=== PATIENT | male | born 1935 | race Caucasian/White ===

== ENCOUNTER 2025-10-21 11:21 | Inpatient (IN) | payer MEDICARE ==
[2025-10-21 11:57] LABS: #Basophils 0.03 10x3/uL (0.0-0.2); #Eosinophils 0.06 10x3/uL (0.0-0.7); #Monocytes 1.15 10x3/uL (0.11-0.59); #Neutrophils 11.46 10x3/uL (1.40-6.50); %Basophils 0.2 % (0.0-1.0); %Eosinophils 0.4 % (0.0-10.0); %Lymphocytes 14.1 % (21.0-51.0); %Monocytes 7.7 % (0.0-10.0); %Neutrophils 77.1 % (42.0-75.0); Hematocrit 51.8 % (42.0-52.0); Hemoglobin 17.4 g/dL (14.0-18.0); Mean Corpuscular Hemoglobin 31.1 pg (27.0-31.0); Mean Corpuscular Volume 92.7 fL (78.0-98.0); Platelet Count 247 10x3/uL (130-400); Red Blood Cell (RBC) Count 5.59 mill/uL (4.70-6.10); White Blood Cell (WBC) Count 14.86 10x3/uL (4.8-10.8)
[2025-10-21 12:10] LABS: ALT (SGPT) 38 U/L (Less than 45); AST (SGOT) 73 U/L (11-34); Albumin 4.6 g/dL (3.1-4.5); Alkaline Phosphatase 65 U/L (40-110); Anion Gap 19 mmol/L (10-20); BUN (Urea Nitrogen) 17 mg/dL (8.4-25.7); Bilirubin, Total 1.8 mg/dL (0.3-1.2); CK (CPK) 2490 U/L (30-200); Calc. Creatinine Clearance 0 mL/min (70-130); Calcium 9.7 mg/dL (7.8-10.44); Carbon Dioxide 24 mmol/L (23-31); Chloride 101 mmol/L (98-107); Globulin 3.1 g/dL (2.4-3.5); Glucose 93 mg/dL (83-110); Potassium 4.1 mmol/L (3.5-5.1); Sodium 140 mmol/L (136-145)
[2025-10-21 12:11] LABS: Magnesium 2.1 mg/dL (1.6-2.6)
[2025-10-21 12:12] LABS: Acetaminophen Less than 10 mcg/mL (Less than 10); Salicylate Less than 8.0 mg/dL (Less than 8.0)
[2025-10-21 12:40] LABS: Cocaine Metabolite Screen Negative (Negative); THC/Cannabinoid Screen Negative (Negative); Tricyclic Screen Negative (Negative)
[2025-10-21 13:07] LABS: Bacteria/HPF None Seen HPF (None Seen); CAUTI Indications for Culture Dysuria,urgency,freq; Glucose, Urine (Dipstick) Normal (Negative); Leukocyte Negative Leu/uL (Negative); Protein, Urine (Dipstick) 50 mg/dL (Neg-Trace); RBC/HPF 0-3 HPF (0-3); Specific Gravity, Urine 1.026 (1.002-1.036); WBC/HPF 0-3 HPF (0-3)
[2025-10-21 13:11] LABS: Urine Culture Reflex No No
[2025-10-21] MEDS ORDERED: Ondansetron PF 4 MG/2 ML Vial IVP PRN (16:46)
[2025-10-21] MEDS ORDERED: Acetaminophen 325 MG TAB PO PRN (16:46)
[2025-10-21 18:00] VITALS: BMI 27.2
[2025-10-21 18:45] LABS: Actual Bicarbonate (HCO3v) 23.4 mEq/L (22-28); Base Excess -3.0 mEq/L (-2.0 to +3.0); Calcium, Ionized (venous) 1.12 mmol/L (1.16-1.32); Chloride (VBG) 101 mmol/L (98-106); Hematocrit-VBG 48 % (42.0-52.0); Hemoglobin (Hb) 16.4 g/dL (12.6-17.4); Potassium (VBG) 3.56 mmol/L (3.70-5.30); Sodium 140 mmol/L (133-146)
[2025-10-22 07:15] LABS: ALT (SGPT) 31 U/L (Less than 45); AST (SGOT) 64 U/L (11-34); Albumin 3.5 g/dL (3.1-4.5); Alkaline Phosphatase 42 U/L (40-110); Anion Gap 14 mmol/L (10-20); BUN (Urea Nitrogen) 19 mg/dL (8.4-25.7); Bilirubin, Total 1.1 mg/dL (0.3-1.2); CK (CPK) 1347 U/L (30-200); Calc. Creatinine Clearance 73 mL/min (70-130); Calcium 8.7 mg/dL (7.8-10.44); Carbon Dioxide 23 mmol/L (23-31); Chloride 106 mmol/L (98-107); Globulin 2.6 g/dL (2.4-3.5); Glucose 88 mg/dL (83-110); Potassium 3.8 mmol/L (3.5-5.1); Sodium 139 mmol/L (136-145)
[2025-10-22 07:32] LABS: #Basophils 0.05 10x3/uL (0.0-0.2); #Eosinophils 0.13 10x3/uL (0.0-0.7); #Monocytes 0.94 10x3/uL (0.11-0.59); #Neutrophils 8.02 10x3/uL (1.40-6.50); %Basophils 0.4 % (0.0-1.0); %Eosinophils 1.1 % (0.0-10.0); %Lymphocytes 19.1 % (21.0-51.0); %Monocytes 8.3 % (0.0-10.0); %Neutrophils 70.4 % (42.0-75.0); Hematocrit 42.9 % (42.0-52.0); Hemoglobin 14.2 g/dL (14.0-18.0); Mean Corpuscular Hemoglobin 31.0 pg (27.0-31.0); Mean Corpuscular Volume 93.7 fL (78.0-98.0); Platelet Count 219 10x3/uL (130-400); Red Blood Cell (RBC) Count 4.58 mill/uL (4.70-6.10); White Blood Cell (WBC) Count 11.39 10x3/uL (4.8-10.8)
[2025-10-22] MEDS: Enoxaparin 40 MG (0.4 mL) SYRINGE SC SCH (08:51)
[2025-10-23 07:24] LABS: Anion Gap 8 mmol/L (10-20); BUN (Urea Nitrogen) 16 mg/dL (8.4-25.7); CK (CPK) 642 U/L (30-200); Calc. Creatinine Clearance 87 mL/min (70-130); Calcium 8.6 mg/dL (7.8-10.44); Carbon Dioxide 25 mmol/L (23-31); Chloride 110 mmol/L (98-107); Glucose 87 mg/dL (83-110); Potassium 3.6 mmol/L (3.5-5.1); Sodium 139 mmol/L (136-145)
[2025-10-23] MEDS: Simvastatin 10 MG TAB PO SCH (08:19)
[2025-10-23 08:39] VITALS: TEMP 97.8
[2025-10-23 16:50] VITALS: BP 148/86
== END 2025-10-23 17:40 | disposition home health service (06) | DRG 558 ==
LOC: ERS 11:21 → T4-B 14:17
PROVIDERS: ADMIT Internal Medicine; ATTEND Internal Medicine
DX: M62.82 Rhabdomyolysis (principal); E87.20 Acidosis, unspecified; E03.9 Hypothyroidism, unspecified; Z79.899 Other long term (current) drug therapy
CPT/HCPCS: 36415; 51701; 70450; 71045; 72125; 80048; 80053; 80306; 80307; 81001; 82550; 82805; 83605; 83735; 84484; 85025; 93005; 96360; 96361; J1650; J7120